=== PATIENT | female | born 1950 | race Caucasian/White ===

== ENCOUNTER → 2018-09-20 | Outpatient (CLI) | payer OTHER ==
[~2018-09-20] MED LIST: BACL10TA PO; BENA20TA PO; NAPR-223 PO; SIMV20TA90 PO; TRAM50TA2 PO
[2018-09-20 08:39] LABS: Cholesterol 202 mg/dL (< 200); HDL Cholesterol 70 mg/dL (40-59); LDL Cholesterol 117 mg/dL (< 100); Triglycerides 129 mg/dL (< 150)
[2018-09-20 09:02] LABS: Free T4 (Free Thyroxine) 1.06 ng/dL (0.89-1.76)
[2018-09-20 09:04] LABS: Folate (Folic Acid) 13.77 ng/mL (5.38-24)
[2018-09-21 07:06] LABS: RPR Non Reactive (Non Reactive)
== END | disposition home or self-care (01) ==
LOC: LAB 07:42
PROVIDERS: ATTEND Internal Medicine
DX: F03.90 Unspecified dementia, unspecified severity, without behavioral disturbance, psychotic disturbance, mood disturbance, and anxiety (principal); I10 Essential (primary) hypertension
CPT/HCPCS: 36415; 80061; 82607; 82746; 84439; 84443; 86592

== ENCOUNTER → 2019-08-17 | Outpatient (CLI) | payer OTHER ==
[2019-08-17 11:41] LABS: Potassium 4.3 mmol/L (3.5-5.1)
[2019-08-17 11:52] LABS: BUN/Creatinine Ratio 16.9; Bilirubin, Total 0.4 mg/dL (0.2-1.0); Calcium 9.5 mg/dL (8.5-10.1); Total Protein 7.8 g/dL (6.4-8.2)
[2019-08-17 12:06] LABS: Basophils # (auto) 0.1 uL; Basophils % (auto) 0.8 % (0.0-2.0); Eosinophils # (auto) 0.1 uL; Hematocrit 46.6 % (36.0-46.0); Hemoglobin 15.6 g/dL (12.2-16.2); Lymphocytes # (auto) 1.4 uL; Lymphocytes % (auto) 19.1 % (10.0-50.0); Mean Corpuscular Hemoglobin 30.7 pg (28.0-32.0); Mean Corpuscular Hgb Conc. 33.5 g/dL (32.0-36.0); Mean Corpuscular Volume 91.5 fL (80.0-100.0); Monocytes # (auto) 0.6 uL; Monocytes % (auto) 8.4 % (0.0-12.0); Neutrophils % (auto) 69.7 % (37.0-80.0); Platelet Count (auto) 238 10^3/uL (140-450); Red Blood Cells 5.09 10^6/uL (4.0-5.20); Red Cell Distribution Width 13.7 % (11.8-14.3); White Blood Cell 7.1 10^3/uL (4.4-10.8)
== END | disposition home or self-care (01) ==
LOC: LAB 09:46
PROVIDERS: ATTEND Internal Medicine
DX: I63.531 Cerebral infarction due to unspecified occlusion or stenosis of right posterior cerebral artery (principal); I10 Essential (primary) hypertension; E78.49 Other hyperlipidemia; R01.1 Cardiac murmur, unspecified
CPT/HCPCS: 36415; 80053; 80061; 85025

== ENCOUNTER → 2020-02-04 | Outpatient (CLI) | payer OTHER ==
[2020-02-04 09:13] LABS: Basophils # (auto) 0.1 10 ^3/uL (0-0.2); Basophils % (auto) 0.6 % (0.0-2.0); Eosinophils # (auto) 0.1 10 ^3/uL (0-0.8); Eosinophils % (auto) 0.7 % (0.0-7.0); Hematocrit 44.8 % (36.0-46.0); Hemoglobin 14.9 g/dL (12.2-16.2); Lymphocytes # (auto) 1.1 10 ^3/uL (0.4-5.4); Lymphocytes % (auto) 10.9 % (10.0-50.0); Mean Corpuscular Hemoglobin 30.1 pg (28.0-32.0); Mean Corpuscular Hgb Conc. 33.4 g/dL (32.0-36.0); Mean Corpuscular Volume 90.1 fL (80.0-100.0); Monocytes # (auto) 0.6 10 ^3/uL (0-1.3); Monocytes % (auto) 5.9 % (0.0-12.0); Neutrophils # (auto) 8.1 10 ^3/uL (1.6-8.6); Neutrophils % (auto) 81.9 % (37.0-80.0); Platelet Count (auto) 223 10^3/uL (140-450); Red Blood Cells 4.97 10^6/uL (4.0-5.20); Red Cell Distribution Width 13.9 % (11.8-14.3); White Blood Cell 9.9 10^3/uL (4.4-10.8)
[2020-02-04 09:48] LABS: Albumin 3.9 g/dL (3.4-5.0); BUN/Creatinine Ratio 13.5; Bilirubin, Total 0.5 mg/dL (0.2-1.0); Calcium 9.6 mg/dL (8.5-10.1); Free T4 (Free Thyroxine) 0.95 ng/dL (0.89-1.76); Total Protein 7.5 g/dL (6.4-8.2)
== END | disposition home or self-care (01) ==
LOC: LAB 08:56
PROVIDERS: ATTEND Internal Medicine
DX: F03.90 Unspecified dementia, unspecified severity, without behavioral disturbance, psychotic disturbance, mood disturbance, and anxiety (principal); Z87.898 Personal history of other specified conditions
CPT/HCPCS: 36415; 80053; 80061; 82607; 84439; 84443; 85025

== ENCOUNTER 2020-10-01 09:56 | Emergency (ER) | payer OTHER ==
[~2020-10-01] VITALS: Ht 175.3 cm; Wt 108.9 kg
[~2020-10-01 09:56] MED LIST changes: +SIMV20TA2 PO; -SIMV20TA90 PO
[2020-10-01 10:50] LABS: Basophils # (auto) 0.1 10 ^3/uL (0-0.2); Basophils % (auto) 0.9 % (0.0-2.0); Eosinophils # (auto) 0.1 10 ^3/uL (0-0.8); Eosinophils % (auto) 0.6 % (0.0-7.0); Hematocrit 42.3 % (36.0-46.0); Hemoglobin 14.4 g/dL (12.2-16.2); Lymphocytes # (auto) 1.1 10 ^3/uL (0.4-5.4); Mean Corpuscular Hemoglobin 31.5 pg (28.0-32.0); Mean Corpuscular Volume 92.6 fL (80.0-100.0); Monocytes # (auto) 0.6 10 ^3/uL (0-1.3); Monocytes % (auto) 7.1 % (0.0-12.0); Neutrophils # (auto) 6.8 10 ^3/uL (1.6-8.6); Neutrophils % (auto) 78.4 % (37.0-80.0); Nucleated Red Blood Cells % 0.1 %; Platelet Count (auto) 278 10^3/uL (140-450); Red Blood Cells 4.57 10^6/uL (4.0-5.20); Red Cell Distribution Width 13.5 % (11.8-14.3); White Blood Cell 8.7 10^3/uL (4.4-10.8)
[2020-10-01 11:06] LABS: Calcium 9.1 mg/dL (8.5-10.1); Potassium 4.9 mmol/L (3.5-5.1)
[2020-10-01 11:09] LABS: BUN/Creatinine Ratio 14.5; Bilirubin, Total 0.6 mg/dL (0.2-1.0); Total Protein 8.1 g/dL (6.4-8.2)
[2020-10-01 12:50] LABS: Urine Bacteria MOD /hpf (None Seen); Urine Blood Negative /uL (Negative); Urine Specific Gravity 1.004 (1.001-1.035); Urine WBC 2 /hpf (0 - 5)
[2020-10-01] MEDS ORDERED: cefTRIAXone 1GM/50ML D5W 50 ML IV ONE (14:00)
[2020-10-01 15:10] VITALS: BP 125/71
== END 2020-10-01 16:46 | disposition home or self-care (01) ==
LOC: ER 09:56
DX: N39.0 Urinary tract infection, site not specified (principal); R60.0 Localized edema; I10 Essential (primary) hypertension; E78.5 Hyperlipidemia, unspecified; Z79.899 Other long term (current) drug therapy
CPT/HCPCS: 36415; 80053; 81001; 83880; 85025; 93005; 93970; 96365; 99285; J0696

== ENCOUNTER → 2021-03-17 | Outpatient (CLI) | payer OTHER ==
[2021-03-17 07:45] LABS: Basophils # (auto) 0.1 10 ^3/uL (0-0.2); Basophils % (auto) 0.9 % (0.0-2.0); Eosinophils # (auto) 0.2 10 ^3/uL (0-0.8); Eosinophils % (auto) 2.6 % (0.0-7.0); Hematocrit 42.7 % (36.0-46.0); Hemoglobin 14.6 g/dL (12.2-16.2); Lymphocytes # (auto) 1.3 10 ^3/uL (0.4-5.4); Lymphocytes % (auto) 17.3 % (10.0-50.0); Mean Corpuscular Hemoglobin 31.1 pg (28.0-32.0); Mean Corpuscular Hgb Conc. 34.2 g/dL (32.0-36.0); Monocytes # (auto) 0.5 10 ^3/uL (0-1.3); Neutrophils # (auto) 5.4 10 ^3/uL (1.6-8.6); Neutrophils % (auto) 72.2 % (37.0-80.0); Red Cell Distribution Width 13.8 % (11.8-14.3); White Blood Cell 7.4 10^3/uL (4.4-10.8)
[2021-03-17 08:18] LABS: Albumin 3.9 g/dL (3.4-5.0)
[2021-03-17 08:26] LABS: BUN/Creatinine Ratio 14.5; Bilirubin, Total 0.6 mg/dL (0.2-1.0); Calcium 9.2 mg/dL (8.5-10.1); Total Protein 7.7 g/dL (6.4-8.2)
[2021-03-18 12:21] LABS: Urine WBC None Seen /hpf (0 - 5)
[2021-03-18 12:32] LABS: Urine Bacteria FEW /hpf (None Seen); Urine Blood Negative /uL (Negative); Urine Specific Gravity 1.005 (1.001-1.035)
== END | disposition home or self-care (01) ==
LOC: LAB 07:08
PROVIDERS: ATTEND Internal Medicine
DX: I10 Essential (primary) hypertension (principal); E66.01 Morbid (severe) obesity due to excess calories; Z87.898 Personal history of other specified conditions
CPT/HCPCS: 36415; 80053; 80061; 81001; 82542; 83036; 84439; 84443; 85025; 85652

== ENCOUNTER 2021-05-31 15:40 | Inpatient (IN) | payer OTHER ==
[~2021-05-31] VITALS: Ht 175.3 cm; Wt 105.7 kg
[2021-05-31] MEDS ORDERED: cefTRIAXone 1GM/50ML D5W 50 ML IV ONE (16:15)
[2021-05-31] MEDS ORDERED: SODIUM CHLORIDE 0.9% 1,000 ML IV ONE (16:45)
[2021-05-31 17:23] LABS: Basophils # (auto) 0 10 ^3/uL (0-0.2); Basophils % (auto) 0.4 % (0.0-2.0); Eosinophils # (auto) 0 10 ^3/uL (0-0.8); Eosinophils % (auto) 0.2 % (0.0-7.0); Hematocrit 43.9 % (36.0-46.0); Hemoglobin 13.8 g/dL (12.2-16.2); Lymphocytes # (auto) 0.9 10 ^3/uL (0.4-5.4); Lymphocytes % (auto) 7.1 % (10.0-50.0); Mean Corpuscular Hemoglobin 29.5 pg (28.0-32.0); Mean Corpuscular Hgb Conc. 31.5 g/dL (32.0-36.0); Mean Corpuscular Volume 93.8 fL (80.0-100.0); Monocytes # (auto) 0.6 10 ^3/uL (0-1.3); Monocytes % (auto) 4.9 % (0.0-12.0); Neutrophils # (auto) 11.1 10 ^3/uL (1.6-8.6); Neutrophils % (auto) 87.4 % (37.0-80.0); Red Blood Cells 4.68 10^6/uL (4.0-5.20); Red Cell Distribution Width 14.3 % (11.8-14.3); White Blood Cell 12.7 10^3/uL (4.4-10.8)
[2021-05-31 17:39] LABS: Potassium 4.1 mmol/L (3.5-5.1)
[2021-05-31 17:41] LABS: INR 1.14 (0.9-1.15); Partial Thromboplastin Time 25.9 sec (23.6-33.0)
[2021-05-31 17:43] LABS: Albumin 3.3 g/dL (3.4-5.0); BUN/Creatinine Ratio 17.3; Calcium 8.7 mg/dL (8.5-10.1)
[2021-05-31 17:46] LABS: Lactic Acid w/Reflex 2.7 mmol/L (0.4-2.0)
[2021-05-31 17:47] LABS: Bilirubin, Total 0.4 mg/dL (0.2-1.0); Total Protein 6.9 g/dL (6.4-8.2)
[2021-05-31] MEDS ORDERED: MORPHINE SULFATE INJECTION 2 MG/ML SYRG IV PRN ×2 (19:00)
[2021-05-31] MEDS ORDERED: LACTATED RINGER'S 2,000 ML IV ONE (19:00)
[2021-05-31] MEDS ORDERED: HYDROcodone-ACET 5/325MG TAB PO PRN (19:00)
[2021-05-31] MEDS ORDERED: NITROGLYCERIN 0.4 MG SL TAB SL PRN (19:00)
[2021-05-31] MEDS ORDERED: ONDANSETRON HCL 4 MG/2 ML VIAL IV PRN (19:00)
[2021-05-31] MEDS: SODIUM CHLORIDE 0.9% 1,000 ML IV SCH (20:10)
[2021-05-31] MEDS: ATORVASTATIN 20 MG TAB PO SCH (23:06)
[2021-05-31 23:17] LABS: Urine Bacteria MANY /hpf (None Seen); Urine Blood 3+ /uL (Negative); Urine Mucus FEW (None Seen); Urine Specific Gravity 1.019 (1.001-1.035); Urine WBC 2195 /hpf (0 - 5); Urine WBC Clumps PRESENT /hpf (None Seen)
[2021-06-01] MEDS: SODIUM CHLORIDE 0.9% 1,000 ML IV SCH ×2 (04:15→11:06)
[2021-06-01 04:16] LABS: Basophils # (auto) 0.1 10 ^3/uL (0-0.2); Basophils % (auto) 0.8 % (0.0-2.0); Eosinophils # (auto) 0 10 ^3/uL (0-0.8); Eosinophils % (auto) 0.5 % (0.0-7.0); Hematocrit 44.6 % (36.0-46.0); Lymphocytes % (auto) 22.2 % (10.0-50.0); Mean Corpuscular Hgb Conc. 31.4 g/dL (32.0-36.0); Mean Corpuscular Volume 95.3 fL (80.0-100.0); Monocytes # (auto) 0.6 10 ^3/uL (0-1.3); Monocytes % (auto) 7.3 % (0.0-12.0); Neutrophils # (auto) 6.1 10 ^3/uL (1.6-8.6); Neutrophils % (auto) 69.2 % (37.0-80.0); Nucleated Red Blood Cells % 0.1 %; Red Blood Cells 4.68 10^6/uL (4.0-5.20); Red Cell Distribution Width 14.4 % (11.8-14.3); White Blood Cell 8.8 10^3/uL (4.4-10.8)
[2021-06-01 05:00] LABS: Anion Gap 9 (5-15); BUN/Creatinine Ratio 21.7; Blood Urea Nitrogen 23 mg/dL (7-18); Calcium 8.9 mg/dL (8.5-10.1); Carbon Dioxide 20 mmol/L (21-32); Chloride 110 mmol/L (98-107); GFR African American 66 mL/min; GFR Non-African American 55 mL/min; Glucose 105 mg/dL (74-106); Potassium 4.8 mmol/L (3.5-5.1); Sodium 139 mmol/L (136-145)
[2021-06-01] MEDS: cefTRIAXone 1GM/50ML D5W 50 ML IV SCH (09:43)
[2021-06-01] MEDS: ASPirin-EC 81 mg tab PO SCH (11:05)
[2021-06-01] MEDS: ENOXAPARIN SOD 40 MG/0.4 ML SYRINGE SC SCH (11:05)
[2021-06-01] MEDS ORDERED: FUROSEMIDE 20 MG/2 ML VIAL IV ONE ×2 (16:45→17:00)
[2021-06-01 17:57] VITALS: BP 116/83
[2021-06-01] MEDS ORDERED: FUROSEMIDE 40 MG/4 ML VIAL IV SCH (18:00)
[2021-06-01] MEDS: ALBUTEROL SULF 2.5 MG/0.5ML(0.5%) NEB SOLN NEB SCH (19:36)
[2021-06-01] MEDS: IPRATROPIUM BROM 0.5 MG/2.5ML INH SOL NEB PRN (19:37)
[2021-06-02] MEDS: ALBUTEROL SULF 2.5 MG/0.5ML(0.5%) NEB SOLN NEB SCH ×5 (00:07→23:53)
[2021-06-02] MEDS: ATORVASTATIN 20 MG TAB PO SCH ×2 (00:44→22:00)
[2021-06-02] MEDS: IPRATROPIUM BROM 0.5 MG/2.5ML INH SOL NEB PRN ×3 (06:17→23:53)
[2021-06-02 07:25] LABS: Basophils # (auto) 0 10 ^3/uL (0-0.2); Basophils % (auto) 0.5 % (0.0-2.0); Eosinophils # (auto) 0 10 ^3/uL (0-0.8); Eosinophils % (auto) 0.1 % (0.0-7.0); Hematocrit 42.3 % (36.0-46.0); Lymphocytes % (auto) 10.2 % (10.0-50.0); Mean Corpuscular Hemoglobin 30.7 pg (28.0-32.0); Mean Corpuscular Hgb Conc. 33.2 g/dL (32.0-36.0); Mean Corpuscular Volume 92.5 fL (80.0-100.0); Monocytes # (auto) 0.6 10 ^3/uL (0-1.3); Monocytes % (auto) 6.7 % (0.0-12.0); Neutrophils # (auto) 7.9 10 ^3/uL (1.6-8.6); Neutrophils % (auto) 82.5 % (37.0-80.0); Nucleated Red Blood Cells % 0.1 %; Red Blood Cells 4.57 10^6/uL (4.0-5.20); Red Cell Distribution Width 14.2 % (11.8-14.3); White Blood Cell 9.6 10^3/uL (4.4-10.8)
[2021-06-02] MEDS ORDERED: LORazepam 2MG/ML-1ML VIAL IV PRN (07:30)
[2021-06-02 07:37] LABS: Potassium 4.5 mmol/L (3.5-5.1)
[2021-06-02 07:43] LABS: Albumin 3.2 g/dL (3.4-5.0); BUN/Creatinine Ratio 22.4; Bilirubin, Total 0.6 mg/dL (0.2-1.0); Calcium 8.8 mg/dL (8.5-10.1); Magnesium 2.5 mg/dL (1.6-2.6); Phosphorus 3.2 mg/dL (2.5-4.90); Total Protein 6.6 g/dL (6.4-8.2)
[2021-06-02] MEDS ORDERED: diphenhdrAMINE HCL 50 MG/1 ML VL IM ONE (08:00)
[2021-06-02] MEDS: ENOXAPARIN SOD 40 MG/0.4 ML SYRINGE SC SCH (08:41)
[2021-06-02] MEDS: ASPirin-EC 81 mg tab PO SCH (08:41)
[2021-06-02] MEDS: cefTRIAXone 1GM/50ML D5W 50 ML IV SCH (10:35)
[2021-06-02] MEDS: LORazepam 2MG/ML-1ML VIAL IM PRN (10:42)
[2021-06-02] MEDS ORDERED: LEVE500T3 PO (15:04)
[2021-06-02] MEDS ORDERED: METO-289 PO (15:04)
[2021-06-02] MEDS ORDERED: FURO40TA4 PO (15:04)
[2021-06-02] MEDS ORDERED: VALS1TAB57 PO (15:04)
[2021-06-02] MEDS ORDERED: AMLO-489 PO (15:04)
[2021-06-02 23:53] VITALS: BP 154/76
[2021-06-03] VITALS (7 sets, daily range): BP systolic 129–161; BP diastolic 77–96
[2021-06-03] MEDS: IPRATROPIUM BROM 0.5 MG/2.5ML INH SOL NEB PRN ×2 (05:58→17:59)
[2021-06-03] MEDS: ALBUTEROL SULF 2.5 MG/0.5ML(0.5%) NEB SOLN NEB SCH ×3 (05:58→17:59)
[2021-06-03] MEDS ORDERED: FUROSEMIDE 20 MG/2 ML VIAL IV SCH (06:00)
[2021-06-03 07:52] LABS: Basophils # (auto) 0.1 10 ^3/uL (0-0.2); Basophils % (auto) 0.6 % (0.0-2.0); Eosinophils # (auto) 0.1 10 ^3/uL (0-0.8); Eosinophils % (auto) 1.5 % (0.0-7.0); Hematocrit 41.9 % (36.0-46.0); Hemoglobin 13.9 g/dL (12.2-16.2); Lymphocytes # (auto) 1.2 10 ^3/uL (0.4-5.4); Lymphocytes % (auto) 13.4 % (10.0-50.0); Mean Corpuscular Hemoglobin 30.8 pg (28.0-32.0); Mean Corpuscular Hgb Conc. 33.1 g/dL (32.0-36.0); Mean Corpuscular Volume 93.1 fL (80.0-100.0); Monocytes # (auto) 0.6 10 ^3/uL (0-1.3); Monocytes % (auto) 7.3 % (0.0-12.0); Neutrophils # (auto) 6.8 10 ^3/uL (1.6-8.6); Neutrophils % (auto) 77.2 % (37.0-80.0); Nucleated Red Blood Cells % 0.2 %; White Blood Cell 8.8 10^3/uL (4.4-10.8)
[2021-06-03 07:56] LABS: BUN/Creatinine Ratio 27.5; Calcium 8.6 mg/dL (8.5-10.1); Magnesium 2.3 mg/dL (1.6-2.6)
[2021-06-03 07:59] LABS: Bilirubin, Total 0.7 mg/dL (0.2-1.0); Total Protein 6.6 g/dL (6.4-8.2)
[2021-06-03] MEDS ORDERED: FUROSEMIDE 20 MG/2 ML VIAL IV ONE (09:15)
[2021-06-03] MEDS: cefTRIAXone 1GM/50ML D5W 50 ML IV SCH (09:59)
[2021-06-03] MEDS: ENOXAPARIN SOD 40 MG/0.4 ML SYRINGE SC SCH (10:04)
[2021-06-03] MEDS: ASPirin-EC 81 mg tab PO SCH (10:04)
[2021-06-03] MEDS: FUROSEMIDE 20 MG/2 ML VIAL IV SCH (17:22)
[2021-06-03] MEDS: ATORVASTATIN 20 MG TAB PO SCH (22:03)
[2021-06-04] VITALS (8 sets, daily range): BP systolic 121–162; BP diastolic 73–91
[2021-06-04] MEDS: ALBUTEROL SULF 2.5 MG/0.5ML(0.5%) NEB SOLN NEB SCH ×4 (00:11→19:51)
[2021-06-04] MEDS: IPRATROPIUM BROM 0.5 MG/2.5ML INH SOL NEB PRN ×4 (00:11→19:51)
[2021-06-04] MEDS: FUROSEMIDE 20 MG/2 ML VIAL IV SCH ×2 (05:53→18:36)
[2021-06-04 06:55] LABS: BUN/Creatinine Ratio 29.3; Calcium 8.9 mg/dL (8.5-10.1)
[2021-06-04] MEDS: cefTRIAXone 1GM/50ML D5W 50 ML IV SCH (09:42)
[2021-06-04] MEDS: ENOXAPARIN SOD 40 MG/0.4 ML SYRINGE SC SCH (09:42)
[2021-06-04] MEDS: ASPirin-EC 81 mg tab PO SCH (09:42)
[2021-06-04] MEDS ORDERED: IOHEXOL 350 MG/ML 100ML IJ ONE ×4 (11:07→16:27)
[2021-06-04] MEDS ORDERED: HEPARIN SODIUM (PORCINE) 5000 UNITS/ML 1ML VIAL IV ONE (14:00)
[2021-06-04 15:00] LABS: Basophils # (auto) 0.1 10 ^3/uL (0-0.2); Basophils % (auto) 0.7 % (0.0-2.0); Eosinophils # (auto) 0.1 10 ^3/uL (0-0.8); Eosinophils % (auto) 0.6 % (0.0-7.0); Hematocrit 43.9 % (36.0-46.0); Hemoglobin 14.5 g/dL (12.2-16.2); Lymphocytes # (auto) 1.2 10 ^3/uL (0.4-5.4); Lymphocytes % (auto) 13.5 % (10.0-50.0); Mean Corpuscular Hemoglobin 30.4 pg (28.0-32.0); Mean Corpuscular Volume 92.2 fL (80.0-100.0); Monocytes # (auto) 0.7 10 ^3/uL (0-1.3); Monocytes % (auto) 7.9 % (0.0-12.0); Neutrophils # (auto) 7.1 10 ^3/uL (1.6-8.6); Neutrophils % (auto) 77.3 % (37.0-80.0); Nucleated Red Blood Cells % 0.3 %; Red Blood Cells 4.76 10^6/uL (4.0-5.20); Red Cell Distribution Width 13.7 % (11.8-14.3); White Blood Cell 9.1 10^3/uL (4.4-10.8)
[2021-06-04] MEDS ORDERED: LIDOCAINE 2%HCL (LOCAL ANESTH.) INJ 20ML MDV ONE (15:07)
[2021-06-04 15:13] LABS: INR 1.33 (0.9-1.15); Partial Thromboplastin Time 26.1 sec (23.6-33.0)
[2021-06-04] MEDS ORDERED: HEPARIN SODIUM (PORCINE) 5000 UNITS/ML 1ML VIAL ONE ×2 (15:17→15:38)
[2021-06-04] MEDS ORDERED: fentaNYL CITRATE 100 MCG/2 ML VL ONE (15:17)
[2021-06-04] MEDS ORDERED: MIDAZOLAM HCL 2MG/2ML 2ml VIAL (1mg/ml) ONE ×2 (15:17→17:00)
[2021-06-04] MEDS ORDERED: HEPARIN 1,000 UNITS/ml 1ML VIAL ONE (17:00)
[2021-06-04] MEDS: HEPARIN DRIP/D5W 100UNITS/ML 250 ML IV SCH (18:32)
[2021-06-04] MEDS: LORazepam 2MG/ML-1ML VIAL IM PRN (19:42)
[2021-06-04] MEDS: ATORVASTATIN 20 MG TAB PO SCH (22:06)
[2021-06-05] MEDS: ALBUTEROL SULF 2.5 MG/0.5ML(0.5%) NEB SOLN NEB SCH ×4 (00:12→19:11)
[2021-06-05] MEDS: IPRATROPIUM BROM 0.5 MG/2.5ML INH SOL NEB PRN ×2 (00:12→11:06)
[2021-06-05 05:00] VITALS: BP 149/87
[2021-06-05] MEDS: FUROSEMIDE 20 MG/2 ML VIAL IV SCH (06:05)
[2021-06-05 06:50] LABS: BUN/Creatinine Ratio 34.2; Basophils # (auto) 0.1 10 ^3/uL (0-0.2); Basophils % (auto) 0.8 % (0.0-2.0); Calcium 8.6 mg/dL (8.5-10.1); Eosinophils # (auto) 0.1 10 ^3/uL (0-0.8); Eosinophils % (auto) 1.5 % (0.0-7.0); Hematocrit 42.3 % (36.0-46.0); Hemoglobin 13.8 g/dL (12.2-16.2); Lymphocytes # (auto) 1.2 10 ^3/uL (0.4-5.4); Lymphocytes % (auto) 14.1 % (10.0-50.0); Magnesium 2.4 mg/dL (1.6-2.6); Mean Corpuscular Hemoglobin 30.2 pg (28.0-32.0); Mean Corpuscular Hgb Conc. 32.7 g/dL (32.0-36.0); Mean Corpuscular Volume 92.4 fL (80.0-100.0); Monocytes # (auto) 0.6 10 ^3/uL (0-1.3); Monocytes % (auto) 7.4 % (0.0-12.0); Neutrophils # (auto) 6.3 10 ^3/uL (1.6-8.6); Neutrophils % (auto) 76.2 % (37.0-80.0); Nucleated Red Blood Cells % 0.2 %; Potassium 3.7 mmol/L (3.5-5.1); Red Blood Cells 4.58 10^6/uL (4.0-5.20); Red Cell Distribution Width 14.2 % (11.8-14.3); White Blood Cell 8.3 10^3/uL (4.4-10.8)
[2021-06-05 06:51] LABS: INR 1.32 (0.9-1.15)
[2021-06-05 07:00] LABS: Partial Thromboplastin Time 88.3 sec (23.6-33.0)
[2021-06-05] MEDS: HEPARIN DRIP/D5W 100UNITS/ML 250 ML IV SCH ×2 (07:53→08:01)
[2021-06-05 08:15] VITALS: BP 116/54
[2021-06-05 09:03] VITALS: BP 116/54
[2021-06-05] MEDS: cefTRIAXone 1GM/50ML D5W 50 ML IV SCH (09:24)
[2021-06-05] MEDS: ASPirin-EC 81 mg tab PO SCH (09:55)
[2021-06-05] MEDS: ACETAMINOPHEN 500 MG TAB PO PRN (09:56)
[2021-06-05 13:00] VITALS: BP 125/64
[2021-06-05 17:00] VITALS: BP 114/63
[2021-06-05 21:15] LABS: INR 1.36 (0.9-1.15); Partial Thromboplastin Time 66.7 sec (23.6-33.0)
[2021-06-05 22:00] VITALS: BP 111/61
[2021-06-05] MEDS: ATORVASTATIN 20 MG TAB PO SCH (22:01)
[2021-06-06] MEDS: ALBUTEROL SULF 2.5 MG/0.5ML(0.5%) NEB SOLN NEB SCH ×4 (00:15→19:13)
[2021-06-06] MEDS: HEPARIN DRIP/D5W 100UNITS/ML 250 ML IV SCH ×2 (01:33→12:03)
[2021-06-06 02:37] LABS: INR 1.41 (0.9-1.15)
[2021-06-06 02:45] LABS: Partial Thromboplastin Time 101.9 sec (23.6-33.0)
[2021-06-06 05:00] VITALS: BP 119/70
[2021-06-06] MEDS: IPRATROPIUM BROM 0.5 MG/2.5ML INH SOL NEB PRN ×3 (06:02→19:13)
[2021-06-06 08:15] VITALS: BP 139/70
[2021-06-06 08:27] LABS: Basophils # (auto) 0.1 10 ^3/uL (0-0.2); Basophils % (auto) 0.8 % (0.0-2.0); Eosinophils # (auto) 0.1 10 ^3/uL (0-0.8); Lymphocytes # (auto) 1.5 10 ^3/uL (0.4-5.4); Lymphocytes % (auto) 16.9 % (10.0-50.0); Mean Corpuscular Hemoglobin 30.8 pg (28.0-32.0); Mean Corpuscular Hgb Conc. 33.4 g/dL (32.0-36.0); Mean Corpuscular Volume 92.4 fL (80.0-100.0); Monocytes # (auto) 0.7 10 ^3/uL (0-1.3); Monocytes % (auto) 7.6 % (0.0-12.0); Neutrophils # (auto) 6.4 10 ^3/uL (1.6-8.6); Neutrophils % (auto) 73.7 % (37.0-80.0); Nucleated Red Blood Cells % 0.1 %; Red Blood Cells 4.54 10^6/uL (4.0-5.20); Red Cell Distribution Width 14.2 % (11.8-14.3); White Blood Cell 8.7 10^3/uL (4.4-10.8)
[2021-06-06 08:59] LABS: BUN/Creatinine Ratio 36.3; Calcium 8.9 mg/dL (8.5-10.1); Potassium 3.6 mmol/L (3.5-5.1)
[2021-06-06 09:00] VITALS: BP 139/70
[2021-06-06] MEDS: cefTRIAXone 1GM/50ML D5W 50 ML IV SCH (09:36)
[2021-06-06] MEDS: LORazepam 2MG/ML-1ML VIAL IV PRN (09:47)
[2021-06-06 10:23] LABS: INR 1.33 (0.9-1.15)
[2021-06-06 10:29] LABS: Partial Thromboplastin Time 71.6 sec (23.6-33.0)
[2021-06-06] MEDS: FUROSEMIDE 40 MG/4 ML VIAL IV SCH (10:41)
[2021-06-06] MEDS: ASPirin-EC 81 mg tab PO SCH (10:41)
[2021-06-06] MEDS: Ensure HIGH Protein Chocolate 8oz Bottle PO SCH ×2 (12:03→17:49)
[2021-06-06 13:00] VITALS: BP 107/72
[2021-06-06 17:00] VITALS: BP 115/67
[2021-06-06 17:10] LABS: INR 1.35 (0.9-1.15)
[2021-06-06 17:21] LABS: Partial Thromboplastin Time 85.7 sec (23.6-33.0)
[2021-06-06] MEDS: ATORVASTATIN 20 MG TAB PO SCH (21:55)
[2021-06-06 22:12] VITALS: BP 117/65
[2021-06-06 23:56] LABS: INR 1.33 (0.9-1.15)
[2021-06-07] VITALS (7 sets, daily range): BP systolic 113–148; BP diastolic 61–81
[2021-06-07 00:01] LABS: Partial Thromboplastin Time 77.7 sec (23.6-33.0)
[2021-06-07] MEDS: ALBUTEROL SULF 2.5 MG/0.5ML(0.5%) NEB SOLN NEB SCH ×5 (00:30→23:27)
[2021-06-07] MEDS: IPRATROPIUM BROM 0.5 MG/2.5ML INH SOL NEB PRN ×5 (00:49→23:27)
[2021-06-07] MEDS: Ensure HIGH Protein Chocolate 8oz Bottle PO SCH ×3 (07:45→18:12)
[2021-06-07] MEDS: HEPARIN DRIP/D5W 100UNITS/ML 250 ML IV SCH ×2 (07:45→16:00)
[2021-06-07 08:24] LABS: BUN/Creatinine Ratio 32.1; Calcium 8.9 mg/dL (8.5-10.1); Potassium 3.4 mmol/L (3.5-5.1)
[2021-06-07] MEDS: cefTRIAXone 1GM/50ML D5W 50 ML IV SCH (09:30)
[2021-06-07] MEDS ORDERED: POTASSIUM EFFERVESENT TAB 25 MEQ GT ONE (10:15)
[2021-06-07] MEDS: ASPirin-EC 81 mg tab PO SCH (10:35)
[2021-06-07 11:16] LABS: INR 1.32 (0.9-1.15); Partial Thromboplastin Time 56.1 sec (23.6-33.0)
[2021-06-07] MEDS: FUROSEMIDE 40 MG/4 ML VIAL IV SCH (11:48)
[2021-06-07 17:45] LABS: INR 1.27 (0.9-1.15); Partial Thromboplastin Time 56.1 sec (23.6-33.0)
[2021-06-07] MEDS: ATORVASTATIN 20 MG TAB PO SCH (22:11)
[2021-06-08 00:25] LABS: INR 1.25 (0.9-1.15); Partial Thromboplastin Time 58.2 sec (23.6-33.0)
[2021-06-08] MEDS: IPRATROPIUM BROM 0.5 MG/2.5ML INH SOL NEB PRN ×3 (06:07→18:23)
[2021-06-08] MEDS: ALBUTEROL SULF 2.5 MG/0.5ML(0.5%) NEB SOLN NEB SCH ×3 (06:07→18:23)
[2021-06-08] MEDS: HEPARIN DRIP/D5W 100UNITS/ML 250 ML IV SCH ×2 (06:50→19:24)
[2021-06-08 08:48] LABS: Basophils # (auto) 0.1 10 ^3/uL (0-0.2); Basophils % (auto) 0.9 % (0.0-2.0); Eosinophils # (auto) 0.2 10 ^3/uL (0-0.8); Eosinophils % (auto) 1.8 % (0.0-7.0); Hematocrit 40.5 % (36.0-46.0); Hemoglobin 13.2 g/dL (12.2-16.2); Lymphocytes % (auto) 11.7 % (10.0-50.0); Mean Corpuscular Hemoglobin 29.9 pg (28.0-32.0); Mean Corpuscular Hgb Conc. 32.5 g/dL (32.0-36.0); Mean Corpuscular Volume 92.1 fL (80.0-100.0); Monocytes # (auto) 0.6 10 ^3/uL (0-1.3); Monocytes % (auto) 7.3 % (0.0-12.0); Neutrophils # (auto) 6.7 10 ^3/uL (1.6-8.6); Neutrophils % (auto) 78.3 % (37.0-80.0); Red Cell Distribution Width 14.1 % (11.8-14.3); White Blood Cell 8.6 10^3/uL (4.4-10.8)
[2021-06-08 09:00] VITALS: BP 112/61
[2021-06-08 09:06] LABS: BUN/Creatinine Ratio 36.5; Calcium 9.1 mg/dL (8.5-10.1); Potassium 3.4 mmol/L (3.5-5.1)
[2021-06-08] MEDS: Ensure HIGH Protein Chocolate 8oz Bottle PO SCH ×3 (09:20→18:23)
[2021-06-08] MEDS ORDERED: D5W 5% 1,000 ML IV ONE (10:00)
[2021-06-08] MEDS ORDERED: POTASSIUM EFFERVESENT TAB 25 MEQ GT ONE (10:15)
[2021-06-08] MEDS: cefTRIAXone 1GM/50ML D5W 50 ML IV SCH (11:13)
[2021-06-08] MEDS: ASPirin-EC 81 mg tab PO SCH (11:14)
[2021-06-08] MEDS ORDERED: POTASSIUM EFFERVESENT TAB 25 MEQ PO ONE (11:15)
[2021-06-08 13:00] VITALS: BP 119/64
[2021-06-08] MEDS: LORazepam 2MG/ML-1ML VIAL IV PRN (16:08)
[2021-06-08 21:38] VITALS: BP 104/64
[2021-06-08] MEDS: ATORVASTATIN 20 MG TAB PO SCH (21:58)
[2021-06-08 23:43] LABS: INR 1.24 (0.9-1.15); Partial Thromboplastin Time 68.3 sec (23.6-33.0)
[2021-06-09] MEDS: ALBUTEROL SULF 2.5 MG/0.5ML(0.5%) NEB SOLN NEB SCH ×4 (00:49→19:11)
[2021-06-09] MEDS: IPRATROPIUM BROM 0.5 MG/2.5ML INH SOL NEB PRN ×4 (00:49→19:11)
[2021-06-09 05:00] VITALS: BP 110/65
[2021-06-09 06:32] LABS: Basophils # (auto) 0.1 10 ^3/uL (0-0.2); Basophils % (auto) 0.8 % (0.0-2.0); Eosinophils # (auto) 0.3 10 ^3/uL (0-0.8); Eosinophils % (auto) 2.7 % (0.0-7.0); Hematocrit 40.1 % (36.0-46.0); Hemoglobin 12.9 g/dL (12.2-16.2); Lymphocytes % (auto) 10.4 % (10.0-50.0); Mean Corpuscular Hgb Conc. 32.3 g/dL (32.0-36.0); Mean Corpuscular Volume 92.8 fL (80.0-100.0); Monocytes # (auto) 0.6 10 ^3/uL (0-1.3); Monocytes % (auto) 6.6 % (0.0-12.0); Neutrophils # (auto) 7.7 10 ^3/uL (1.6-8.6); Neutrophils % (auto) 79.5 % (37.0-80.0); Nucleated Red Blood Cells % 0.2 %; Red Blood Cells 4.32 10^6/uL (4.0-5.20); Red Cell Distribution Width 14.4 % (11.8-14.3); White Blood Cell 9.7 10^3/uL (4.4-10.8)
[2021-06-09 06:36] LABS: Potassium 3.2 mmol/L (3.5-5.1)
[2021-06-09 06:50] LABS: BUN/Creatinine Ratio 29.6; Calcium 8.7 mg/dL (8.5-10.1)
[2021-06-09] MEDS: Ensure HIGH Protein Chocolate 8oz Bottle PO SCH ×3 (08:00→18:42)
[2021-06-09 09:00] VITALS: BP 102/61
[2021-06-09] MEDS ORDERED: POTASSIUM EFFERVESENT TAB 25 MEQ PO ONE (09:00)
[2021-06-09] MEDS ORDERED: POTASSIUM CHLORIDE 20 MEQ, LIDOCAINE 1% (LOCAL ANESTH.) 2 ML in SODIUM CHL 0.9% 100 ML IV ONE (09:00)
[2021-06-09] MEDS ORDERED: HEPARIN DRIP/D5W 100UNITS/ML 250 ML IV SCH (09:45)
[2021-06-09] MEDS: ASPirin-EC 81 mg tab PO SCH (10:49)
[2021-06-09] MEDS: cefTRIAXone 1GM/50ML D5W 50 ML IV SCH (10:49)
[2021-06-09] MEDS: APIXABAN 5 MG TAB PO SCH ×2 (10:50→21:44)
[2021-06-09] MEDS ORDERED: FUROSEMIDE 40 MG/4 ML VIAL IV ONE (12:00)
[2021-06-09 13:00] VITALS: BP 106/65
[2021-06-09] MEDS: ACETAMINOPHEN 500 MG TAB PO PRN ×2 (14:57→21:56)
[2021-06-09 17:00] VITALS: BP 132/69
[2021-06-09] MEDS: ATORVASTATIN 20 MG TAB PO SCH (21:44)
[2021-06-09 22:00] VITALS: BP 126/61
[2021-06-10] MEDS: ALBUTEROL SULF 2.5 MG/0.5ML(0.5%) NEB SOLN NEB SCH ×4 (00:40→18:27)
[2021-06-10] MEDS: IPRATROPIUM BROM 0.5 MG/2.5ML INH SOL NEB PRN ×4 (00:40→18:27)
[2021-06-10 05:00] VITALS: BP 126/65
[2021-06-10 09:00] VITALS: BP 122/64
[2021-06-10] MEDS: ASPirin-EC 81 mg tab PO SCH (09:40)
[2021-06-10] MEDS: APIXABAN 5 MG TAB PO SCH ×2 (09:40→21:38)
[2021-06-10] MEDS: cefTRIAXone 1GM/50ML D5W 50 ML IV SCH (09:40)
[2021-06-10] MEDS: Ensure HIGH Protein Chocolate 8oz Bottle PO SCH ×3 (09:40→18:27)
[2021-06-10] MEDS: FUROSEMIDE 20 MG/2 ML VIAL IV SCH (09:40)
[2021-06-10] MEDS ORDERED: AZITHROMYCIN 250 MG TAB PO ONE (10:30)
[2021-06-10 11:20] VITALS: BP 122/64
[2021-06-10 13:00] VITALS: BP 121/48
[2021-06-10 16:59] VITALS: BP 101/63
[2021-06-10] MEDS: ATORVASTATIN 20 MG TAB PO SCH (21:38)
[2021-06-10 21:43] VITALS: BP 113/50
[2021-06-11] MEDS: IPRATROPIUM BROM 0.5 MG/2.5ML INH SOL NEB PRN ×4 (00:01→18:10)
[2021-06-11] MEDS: ALBUTEROL SULF 2.5 MG/0.5ML(0.5%) NEB SOLN NEB SCH ×5 (00:02→18:10)
[2021-06-11 05:00] VITALS: BP 123/72
[2021-06-11 05:58] LABS: Basophils # (auto) 0.1 10 ^3/uL (0-0.2); Basophils % (auto) 0.7 % (0.0-2.0); Eosinophils # (auto) 0.2 10 ^3/uL (0-0.8); Eosinophils % (auto) 2.3 % (0.0-7.0); Hematocrit 42.7 % (36.0-46.0); Hemoglobin 13.9 g/dL (12.2-16.2); Lymphocytes % (auto) 10.4 % (10.0-50.0); Mean Corpuscular Hemoglobin 30.3 pg (28.0-32.0); Mean Corpuscular Hgb Conc. 32.7 g/dL (32.0-36.0); Mean Corpuscular Volume 92.7 fL (80.0-100.0); Monocytes # (auto) 0.8 10 ^3/uL (0-1.3); Monocytes % (auto) 7.7 % (0.0-12.0); Neutrophils # (auto) 7.9 10 ^3/uL (1.6-8.6); Neutrophils % (auto) 78.9 % (37.0-80.0); Nucleated Red Blood Cells % 0.1 %; Red Blood Cells 4.61 10^6/uL (4.0-5.20); Red Cell Distribution Width 14.2 % (11.8-14.3)
[2021-06-11 06:18] LABS: Calcium 9.2 mg/dL (8.5-10.1); Potassium 3.6 mmol/L (3.5-5.1)
[2021-06-11 06:20] LABS: BUN/Creatinine Ratio 32.1; Phosphorus 3.1 mg/dL (2.5-4.90)
[2021-06-11] MEDS: Ensure HIGH Protein Chocolate 8oz Bottle PO SCH ×3 (08:00→18:00)
[2021-06-11] MEDS: AZITHROMYCIN 250 MG TAB PO SCH (10:00)
[2021-06-11] MEDS: cefTRIAXone 1GM/50ML D5W 50 ML IV SCH (12:47)
[2021-06-11] MEDS: ASPirin-EC 81 mg tab PO SCH (12:48)
[2021-06-11] MEDS: FUROSEMIDE 20 MG/2 ML VIAL IV SCH (12:48)
[2021-06-11] MEDS: APIXABAN 5 MG TAB PO SCH ×2 (12:49→22:09)
[2021-06-11 22:00] VITALS: BP_SYST 110; BP_SYST 88; BP_DIAS 61; BP_DIAS 69
[2021-06-11] MEDS: ATORVASTATIN 20 MG TAB PO SCH (22:09)
[2021-06-12] MEDS: IPRATROPIUM BROM 0.5 MG/2.5ML INH SOL NEB PRN ×2 (00:04→18:18)
[2021-06-12 05:00] VITALS: BP 113/66
[2021-06-12] MEDS: cefTRIAXone 1GM/50ML D5W 50 ML IV SCH (09:16)
[2021-06-12] MEDS: FUROSEMIDE 20 MG/2 ML VIAL IV SCH (09:18)
[2021-06-12] MEDS: APIXABAN 5 MG TAB PO SCH ×2 (09:19→21:27)
[2021-06-12] MEDS: ASPirin-EC 81 mg tab PO SCH (09:19)
[2021-06-12] MEDS: AZITHROMYCIN 250 MG TAB PO SCH (09:20)
[2021-06-12] MEDS ORDERED: APIX5TAB PO (11:31)
[2021-06-12] MEDS ORDERED: AZIT250T9 PO (11:31)
[2021-06-12] MEDS: ALBUTEROL SULF 2.5 MG/0.5ML(0.5%) NEB SOLN NEB SCH ×2 (12:20→18:18)
[2021-06-12 12:53] VITALS: BP 114/74
[2021-06-12] MEDS: Ensure HIGH Protein Chocolate 8oz Bottle PO SCH ×2 (14:34→18:29)
[2021-06-12 17:00] VITALS: BP 129/83
[2021-06-12] MEDS: ATORVASTATIN 20 MG TAB PO SCH (21:28)
[2021-06-12 21:33] VITALS: BP 112/77
[2021-06-12 22:08] VITALS: BP 112/77
[2021-06-13 05:30] VITALS: BP 133/75
[2021-06-13] MEDS: ALBUTEROL SULF 2.5 MG/0.5ML(0.5%) NEB SOLN NEB SCH ×3 (06:28→18:27)
[2021-06-13] MEDS: IPRATROPIUM BROM 0.5 MG/2.5ML INH SOL NEB PRN ×2 (06:28→18:27)
[2021-06-13] MEDS: Ensure HIGH Protein Chocolate 8oz Bottle PO SCH ×3 (08:00→18:26)
[2021-06-13 09:00] VITALS: BP 118/71
[2021-06-13] MEDS: AZITHROMYCIN 250 MG TAB PO SCH (10:25)
[2021-06-13] MEDS: FUROSEMIDE 20 MG/2 ML VIAL IV SCH (10:25)
[2021-06-13] MEDS: ASPirin-EC 81 mg tab PO SCH (10:25)
[2021-06-13] MEDS: APIXABAN 5 MG TAB PO SCH ×2 (10:25→22:16)
[2021-06-13] MEDS: cefTRIAXone 1GM/50ML D5W 50 ML IV SCH (10:25)
[2021-06-13 13:00] VITALS: BP 125/82
[2021-06-13 17:00] VITALS: BP 114/69
[2021-06-13 22:00] VITALS: BP 98/65
[2021-06-13] MEDS: ATORVASTATIN 20 MG TAB PO SCH (22:17)
[2021-06-14 05:00] VITALS: BP 140/81
[2021-06-14 06:58] LABS: Basophils # (auto) 0.1 10 ^3/uL (0-0.2); Basophils % (auto) 0.7 % (0.0-2.0); Eosinophils # (auto) 0.1 10 ^3/uL (0-0.8); Eosinophils % (auto) 1.1 % (0.0-7.0); Hematocrit 45.6 % (36.0-46.0); Hemoglobin 15.1 g/dL (12.2-16.2); Lymphocytes # (auto) 0.9 10 ^3/uL (0.4-5.4); Lymphocytes % (auto) 9.7 % (10.0-50.0); Mean Corpuscular Hemoglobin 30.4 pg (28.0-32.0); Mean Corpuscular Hgb Conc. 33.1 g/dL (32.0-36.0); Mean Corpuscular Volume 91.9 fL (80.0-100.0); Monocytes # (auto) 0.6 10 ^3/uL (0-1.3); Monocytes % (auto) 6.8 % (0.0-12.0); Neutrophils # (auto) 7.6 10 ^3/uL (1.6-8.6); Neutrophils % (auto) 81.7 % (37.0-80.0); Red Blood Cells 4.96 10^6/uL (4.0-5.20); Red Cell Distribution Width 14.2 % (11.8-14.3); White Blood Cell 9.3 10^3/uL (4.4-10.8)
[2021-06-14 07:15] LABS: Calcium 9.7 mg/dL (8.5-10.1); Magnesium 2.9 mg/dL (1.6-2.6); Potassium 3.8 mmol/L (3.5-5.1)
[2021-06-14 07:17] LABS: BUN/Creatinine Ratio 39.1
[2021-06-14] MEDS: IPRATROPIUM BROM 0.5 MG/2.5ML INH SOL NEB PRN ×3 (07:32→18:23)
[2021-06-14] MEDS: ALBUTEROL SULF 2.5 MG/0.5ML(0.5%) NEB SOLN NEB SCH ×3 (07:32→18:23)
[2021-06-14] MEDS: Ensure HIGH Protein Chocolate 8oz Bottle PO SCH ×3 (08:00→18:30)
[2021-06-14 09:24] VITALS: BP 125/95
[2021-06-14 09:27] VITALS: BP 162/98
[2021-06-14] MEDS ORDERED: FUROSEMIDE 20 MG TAB PO SCH (10:00)
[2021-06-14] MEDS: ASPirin-EC 81 mg tab PO SCH (10:19)
[2021-06-14] MEDS: APIXABAN 5 MG TAB PO SCH ×2 (10:19→22:00)
[2021-06-14 13:20] VITALS: BP 139/91
[2021-06-14 16:39] VITALS: BP 149/78
[2021-06-14 22:00] VITALS: BP 132/86
[2021-06-14] MEDS: ATORVASTATIN 20 MG TAB PO SCH (22:00)
[2021-06-15 05:00] VITALS: BP 139/92
[2021-06-15] MEDS: ALBUTEROL SULF 2.5 MG/0.5ML(0.5%) NEB SOLN NEB SCH ×3 (07:15→18:27)
[2021-06-15] MEDS: IPRATROPIUM BROM 0.5 MG/2.5ML INH SOL NEB PRN ×3 (07:15→18:27)
[2021-06-15] MEDS: Ensure HIGH Protein Chocolate 8oz Bottle PO SCH ×3 (08:00→18:00)
[2021-06-15] MEDS ORDERED: D5W 5% 1,000 ML IV ONE (08:45)
[2021-06-15] MEDS: ASPirin-EC 81 mg tab PO SCH (09:01)
[2021-06-15] MEDS: APIXABAN 5 MG TAB PO SCH (09:01)
[2021-06-15 09:15] VITALS: BP 119/71
[2021-06-15 13:00] VITALS: BP 141/76
[2021-06-15 15:32] VITALS: BP 162/98
[2021-06-15 16:40] VITALS: BP 117/71
[2021-06-16] MEDS ORDERED: APIXABAN 5 MG TAB PO SCH (10:00)
== END 2021-06-15 19:50 | disposition hospice, home (50) | DRG 853 ==
LOC: EDUNIT# 15:40 → ER 15:40 → EDBD 15:40 → OVERFLOW 18:49 → TELE-CENTR 06-02 22:44
PROVIDERS: ADMIT Nurse Practitioner Acute Care; ATTEND Internal Medicine
PROC: 05HF33Z Insertion of Infusion Device into Left Cephalic Vein, Percutaneous Approach (ICD-10-PCS; 2021-06-02)
PROC: B54NZZA Ultrasonography of Left Upper Extremity Veins, Guidance (ICD-10-PCS; 2021-06-02)
PROC: 02CQ3ZZ Extirpation of Matter from Right Pulmonary Artery, Percutaneous Approach (ICD-10-PCS; principal; 2021-06-04)
PROC: 02CR3ZZ Extirpation of Matter from Left Pulmonary Artery, Percutaneous Approach (ICD-10-PCS; 2021-06-04)
PROC: B31TYZZ Fluoroscopy of Left Pulmonary Artery using Other Contrast (ICD-10-PCS; 2021-06-04)
PROC: B31SYZZ Fluoroscopy of Right Pulmonary Artery using Other Contrast (ICD-10-PCS; 2021-06-04)
DX: A41.9 Sepsis, unspecified organism (principal); I26.99 Other pulmonary embolism without acute cor pulmonale; N17.0 Acute kidney failure with tubular necrosis; G93.41 Metabolic encephalopathy; R65.21 Severe sepsis with septic shock; I50.31 Acute diastolic (congestive) heart failure; J96.01 Acute respiratory failure with hypoxia; N39.0 Urinary tract infection, site not specified; E87.0 Hyperosmolality and hypernatremia; J98.11 Atelectasis; F02.80 Dementia in other diseases classified elsewhere, unspecified severity, without behavioral disturbance, psychotic disturbance, mood disturbance, and anxiety; B96.20 Unspecified Escherichia coli [E. coli] as the cause of diseases classified elsewhere; Z20.822 Contact with and (suspected) exposure to COVID-19; G30.9 Alzheimer's disease, unspecified; I11.0 Hypertensive heart disease with heart failure; I27.20 Pulmonary hypertension, unspecified; R56.9 Unspecified convulsions; E04.1 Nontoxic single thyroid nodule; E87.6 Hypokalemia; Z79.899 Other long term (current) drug therapy; Z82.49 Family history of ischemic heart disease and other diseases of the circulatory system; Z86.711 Personal history of pulmonary embolism
CPT/HCPCS: 36415; 36600; 37187; 70450; 71045; 71250; 71275; 75743; 76942; 80048; 80053; 81001; 82805; 83605; 83735; 83880; 84100; 84295; 84484; 85025; 85610; 85730; 87040; 87086; 87088; 87186; 87426; 93005; 93306; 93970; 94640; 96365; 97110; 97163; 97530; 99152; 99153; A4565; G0378; J0696; J2001; J2250